=== PATIENT | female | born 1990 | race Caucasian/White ===

== ENCOUNTER → 2021-07-27 10:59 | Outpatient (CLI) | payer MEDICAID, SELFPAY ==
[2021-07-27 11:36] LABS: Basophils # 0.1 K/mm3 (0-0.2); Basophils % 1.2 % (0.1-2.0); Eosinophils # 0.1 K/mm3 (0.0-0.4); Eosinophils % 1.8 % (0.1-12.0); Hematocrit 42.7 % (37.0-47.0); Hemoglobin 13.8 g/dL (12.2-16.2); Lymphocytes # 2.5 K/mm3 (0.7-4.5); Mean Corpuscular HGB Conc 32.3 g/dL (31.8-35.4); Mean Corpuscular Hemoglobin 31.4 pg (27.0-31.2); Mean Corpuscular Volume 97.2 fl (81-99); Mean Platelet Volume 9.2 fl (7.4-10.4); Monocytes # 0.3 K/mm3 (0.1-1.0); Monocytes % 4.5 % (1.7-9.3); Neutrophils # 3.9 K/mm3 (1.8-7.8); Neutrophils % 56.5 % (37.0-80.0); Platelet Count 225 K/mm3 (142-424); Red Blood Count 4.39 M/mm3 (4.20-5.40); White Blood Count 6.8 K/mm3 (4.8-10.8)
[2021-07-27 12:42] LABS: HCG Qualitative, Serum Negative (Negative)
[2021-07-27 16:04] LABS: Alanine Aminotransferase 14 U/L (12-78); Albumin Level 4.4 g/dl (3.5-5.0); Albumin/Globulin Ratio 1.5 (1.1-1.8); Alkaline Phosphatase 50 U/L (38-126); Anion Gap 13.2 mEq/L (5-15); Aspartate Amino Transferase 21 U/L (14-36); Bilirubin,Total 0.9 mg/dl (0.2-1.3); Blood Urea Nitrogen 7 mg/dl (7-17); Calcium 9.8 mg/dl (8.4-10.2); Carbon Dioxide 25 mmol/L (22.0-30.0); Chloride 107 mmol/L (98-107); Estimated Glomerular Filt Rate 99 ml/min (>60); GFR (African American) 120 ML/MIN (>60); Globulin 2.9 g/dL (1.3-3.2); Glucose 97 mg/dl (74-100); Potassium 4.2 mmoL/L (3.5-5.1); Sodium 141 mmol/L (136-145); Total Protein,Serum 7.3 g/dl (6.3-8.2)
== END ==
PROVIDERS: Visit Provider Obstetrics & Gynecology
DX: Z01.812 Encounter for preprocedural laboratory examination (principal); Z11.52 Encounter for screening for COVID-19; Z30.46 Encounter for surveillance of implantable subdermal contraceptive; N87.1 Moderate cervical dysplasia
CPT/HCPCS: 36415; 80053; 84703; 85025; C9803; U0003; U0005

== ENCOUNTER 2021-07-30 07:19 | Day surgery (SDC) | payer MEDICAID, SELFPAY ==
[2021-07-28 10:50] VITALS: BMI 26.7
[2021-07-30] VITALS (11 sets, daily range): BP systolic 106–136; BP diastolic 68–87; PULSE 54–69; RESP 14–18; TEMP 36.9–37.1; O2SAT 96–100
--- NOTE | 2021-07-30 07:49 | P.PN_ITS ---
[facility] Anesthesia Checklist - Patient Identification Patient Identification: Arm Band - Structural Data Admitted From: Home Planned Operative Procedure/s: Lap tubal/LEEP Consent for Planned Operative Procedure(s) Verified: Yes - Additional verifications Anesthesia Reactions: No Hx Blood Transfusions: No Blood Transfusion Reaction: No - Airway Assessment C-Spine Mobility Assessed: Yes TMJ Mobility Assessed: Yes Dentition: Edentulous - Neurological Assessment Level of Consciousness: Awake Hx Seizures: No Numbness or tingling in extremities: No - Anesthesia Plan Anesthesia Risk discussed: Yes Anesthesia Plan: Verified ASA Class: I Anesthesia Type: General [facility] History I have reviewed the patient's past medical history: Yes Medical History: Denies:: Cancer, Diabetes Mellitus Type 1, Diabetes Mellitus Type 2, Internal Pacemaker, MRSA, Seizures *Have you ever received a pneumonia vaccine?: No *Have you received a flu vaccine this season?: No Other Medical History: Denies: Blood Transfusion Reaction Anesthesia experience/problems:: None Other Surgeries: No: Pacemaker Amputation: No Fractures: No - *Social History Last grade of school completed: High school graduate Smoking Status: Current every day smoker Tobacco Type: cigarettes # Packs/Day (cigarettes): 1 Alcohol Intake: current Alcohol Intake Frequency:: holidays/special occasions only Substance Use Type: heroin *Occupational Status:: employed Housing: house *Travel in the last 8 weeks: None Family Hx:: Asthma
--- NOTE | 2021-07-30 10:41 | HMH.ANESI ---
[facility] Anesthesia Record Part I Intake, IV Amount: 1,000 Estimated blood loss (mL): 20 Urine output (mL): 0 Blood Pressure: 114/68 SaO2: 96 Pulse Rate: 68 Respiratory Rate: 16 Temperature: 98.8 F Patient is:: Drowsy, Stable Stable to PACU at:: 10:40
--- NOTE | 2021-07-30 11:05 | P.OP_ITS ---
Date of procedure: 07/30/21 Pre-op Diagnosis:: 1. Undesired fertility 2. SERAFIN 2 Post-op Diagnosis:: same Procedure performed:: 1. Laparoscopic bilateral tubal ligation 2. Loop Electro-surgical Excisional Procedure Surgeon:: Maxine Gamboa MD [employer] MANAGER:: Zhen Perez Anesthesia: GETA Estimated blood loss (mL): 20 Operative findings:: grossly normal uterus, fallopian tubes and ovaries Operative note:: The patient was taken to the operating room and general anesthesia was administered. She was prepped/draped in lithotomy position. A uterine manipulator was placed without difficulty. Gloves were changed and attention was turned to the abdomen. A 5mm skin incision was made in the umbilical fold and the Verees needle was inserted through the peritoneum and into the abdominal cavity in standard fashion. The abdomen was insufflated with CO2 gas. A 5mm non-bladed trocar was inserted directly into the abdominal cavity and appropriate placement was confirmed with the laparoscope. No intra-abdominal injuries occurred during entry into the abdominal cavity, as confirmed visually with the laparoscope. The patient was placed in trendelenburg and a 8mm skin incision was made 2cm above the pubic symphysis. A 8mm non-bladed trocar was inserted under direct visualization, without complication. The uterus was elevated out of the pelvis in order to better visualize the anatomy. A survey of the pelvis and abdomen revealed the findings noted above. The uterus was angled towards the patient right and the left fallopian tube was grasped and a Filshie clip was placed over the tube. The clip was noted to completely occlude the tube. The uterus was then angled towards the patient left, and the right fallopian tube was grasped and a Filshie clip was placed over the tube. The clip was noted to completely occlude the tube. The uterine manipulator was removed. The abdomen was then evacuated of gas and all trocars removed. The skin incisions were closed with Dermabond. Attention was then turned to the cervix. The LEEP was performed using a C-LETZ loop and the specimen was excised in a single specimen. Sharp curettage was performed in the cervix and the specimen sent separately. The ectocervix and endocervix were cauterized and Ferric subsulfate was placed over the surgical site. The patient tolerated the procedure well. Sponge/lap/needle/instrument counts were correct at conclusion of procedures. She was taken out of lithotomy position and awakened from anesthesia, and was taken to the recovery room in stable condition. Condition: stable Disposition: PACU Specimens:: 1. Cervical cone 2. Endocervical curettings Complications:: none
--- NOTE | 2021-07-30 11:29 | SUR.PHASEI ---
1122-detailed report called to cristy Fam in Postop.
--- NOTE | 2021-07-30 12:55 | P.PN_ITS ---
[facility] Anesthesia Record Part II Discharge Time: 11:23 Destination: Surgical Day Care (OP Surgery) PACU nurse assessment reviewed?: Yes Patient Condition:: Good Anesthesia Complications:: None Swallowing reflex intact?: Yes Cyanosis?: No Blood Pressure: 119/72 Pulse Rate: 60 Temperature: 98.4 F Mental Status: Alert & Oriented Pain level:: 5 Nausea and/or vomitting:: None Intake, IV Amount: 0
== END 2021-07-30 11:55 | disposition home or self-care (01) ==
LOC: OR 07:21
PROVIDERS: PCP Pediatrics; Visit Provider Obstetrics & Gynecology
PROC: 0UL74ZZ Occlusion of Bilateral Fallopian Tubes, Percutaneous Endoscopic Approach (ICD-10-PCS; CPT 58670; principal; 2021-07-30 09:00)
DX: Z30.2 Encounter for sterilization (principal); N87.1 Moderate cervical dysplasia; Z72.0 Tobacco use; Z82.5 Family history of asthma and other chronic lower respiratory diseases
CPT/HCPCS: 58671; 57460; 58110; 96374; C1781; J2405; J2710